=== PATIENT | female | born 1995 ===

== ENCOUNTER 2018-08-11 07:40 | Inpatient (IN) | payer OTHER ==
[~2018-08-11] VITALS: Ht 152.4 cm; Wt 78.5 kg
[2018-08-11] MEDS ORDERED: PRENATAL 19 TA1 EACH PO (08:35)
[2018-08-11] MEDS ORDERED: SYNTHROID175 MCG PO (08:36)
[2018-08-11] MEDS ORDERED: IROSPAN 24/6 T1 EACH PO (08:37)
== END 2018-08-13 16:32 | disposition home or self-care (01) | DRG 807 ==
LOC: OB/GYN 07:40 → LDR 07:40 → OB/GYN 16:53
PROVIDERS: ADMIT Obstetrics & Gynecology
PROC: 10E0XZZ Delivery of Products of Conception, External Approach (ICD-10-PCS; principal; 2018-08-11)
PROC: 4A1HXCZ Monitoring of Products of Conception, Cardiac Rate, External Approach (ICD-10-PCS; 2018-08-11)
DX: O80 Encounter for full-term uncomplicated delivery (principal); Z37.0 Single live birth; Z3A.39 39 weeks gestation of pregnancy